=== PATIENT | female | born 1950 ===

== ENCOUNTER → 2019-06-30 | Outpatient (CLI) | payer OTHER | LOC: NUC 10:20 → RAD 10:20 → NUC 14:55 | DX: Z12.31 Encounter for screening mammogram for malignant neoplasm of breast (principal); M81.0 Age-related osteoporosis without current pathological fracture ==

== ENCOUNTER → 2019-07-06 | Outpatient (CLI) | payer OTHER | LOC: RAD 01:56 | DX: R92.2 Inconclusive mammogram (principal) ==